=== PATIENT | female | born 1935 | race Caucasian/White ===

== ENCOUNTER 2021-09-08 18:30 | Emergency (ER) | payer MEDICARE ==
[2021-09-08 18:38] VITALS: BP 179/100; PULSE 91
--- NOTE | 2021-09-08 19:17 | CR ---
PROCEDURE INFORMATION: Exam: XR Left Femur Exam date and time: 09/08/2021 6:47 PM Age: 85 years old Clinical indication: Other: Fall/knee pain; Additional info: Left femur pain due to fall TECHNIQUE: Imaging protocol: XR Left femur. Views: 2 views. COMPARISON: No relevant prior studies available. FINDINGS: Bones/joints: Right proximal femoral hardware noted. There is a severely comminuted and impacted distal left femoral fracture. It is likely intra-articular. There is impaction by at least 6 cm. Moderate degenerative changes in the left knee. Soft tissues: Soft tissue trauma seen in the left thigh and knee. IMPRESSION: Severely comminuted distal left femoral fracture
[2021-09-08] MEDS ORDERED: HYDROmorphone 0.5 MG/0.5 ML Syringe IVPUSH ONE ×2 (19:21→20:49)
--- NOTE | 2021-09-08 19:39 | EDM.PDOC ---
ED HPI GENERAL MEDICAL PROBLEM - General Chief Complaint: Lower Extremity Injury/Pain Stated Complaint: AMBULANCE Time Seen by Provider: 09/08/21 19:00 Source of Information: Reports: Patient History Limitations: Reports: No Limitations - History of Present Illness INITIAL COMMENTS - FREE TEXT/NARRATIVE: 85 y/o F c/o L knee pain after falling over her great gand son while he was playing on the floor. Pt tripped fell forward and landed on her L knee and catching herself with her hands. Pt then turned over and sat on her buttocks. No loc. Hx of afib, is on Coumadin. Pain is /10 just above the knee, sharp in nature, constant, worse with movement. Denies other injury, NVD, pelvic pain, back pain, ctls pain, cp, db, joy, vision prob. - Related Data Allergies Allergy/AdvReac Type Severity Reaction Status Date / Time Penicillins Allergy Rash Verified 09/08/21 18:30 [id number] Reductase Allergy Muscle Verified 09/08/21 18:30 Inhibitor Aches [Cpypsnd-Zxa-Vsi Reductase Inhibitor] Home Meds: Home Meds Aspirin [Adult Low Dose Aspirin EC] 81 mg PO DAILY 03/01/15 [History] Nitroglycerin [Nitrostat] 0.4 mg SL ASDIRECTED 03/01/15 [History] Acetaminophen [Acetaminophen Extra Strength] 1,000 mg PO Q6H PRN 03/02/15 [History] diphenhydrAMINE [Benadryl] 50 mg PO BEDTIME PRN 03/02/15 [History] Ezetimibe [Zetia] 10 mg PO DAILY 02/27/16 [History] Sennosides/Docusate Sodium [Senokot-S Tablet] 2 tab PO BID 10/03/16 [History] Ubidecarenone [Coq10] 50 mg PO DAILY 10/03/16 [History] carvediloL [Coreg] 25 mg PO BID 10/03/16 [History] Acetaminophen/HYDROcodone [Aylett 325-5 MG] 1 tab PO Q8H PRN #30 tablet 10/23/16 [Rx] Lisinopril [Prinivil] 5 mg PO DAILY #30 tablet 10/23/16 [Rx] Warfarin Sodium [Coumadin] 3 mg PO DAILY #8 tablet 10/23/16 [Rx] Warfarin Sodium [Coumadin] 4 mg PO DAILY #6 tablet 10/23/16 [Rx] Past Medical History HEENT History: Reports: Impaired Vision Other HEENT History: wears glasses Cardiovascular History: Reports: Afib, High Cholesterol, Hypertension, Stents Other Cardiovascular History: 2012 stents and two balloons Respiratory History: Reports: None Gastrointestinal History: Reports: None Genitourinary History: Reports: None [employer]ICER History: Reports: None, Musculoskeletal History: Reports: Arthritis Neurological History: Reports: None Psychiatric History: Reports: None Endocrine/Metabolic History: Reports: None Hematologic History: Reports: Blood Transfusion(s) Immunologic History: Reports: None Oncologic (Cancer) History: Reports: None Dermatologic History: Reports: None - Infectious Disease History Infectious Disease History: Reports: None - Past Surgical History Head Surgeries/Procedures: Reports: None Cardiovascular Surgical History: Reports: Coronary Artery Stent GI Surgical History: Reports: None Musculoskeletal Surgical History: Reports: Other (See Below) Other Musculoskeletal Surgeries/Procedures:: R gamma nail Social & Family History - Tobacco Use Tobacco Use Status *Q: Never Tobacco User - Caffeine Use Caffeine Use: Reports: Coffee - Recreational Drug Use Recreational Drug Use: No Review of Systems - Review of Systems Review Of Systems: Comprehensive ROS is negative, except as noted in HPI. ED EXAM, GENERAL - Physical Exam Exam: See Below Exam Limited By: No Limitations General Appearance: Alert, Mild Distress Eye Exam: Bilateral Eye: PERRL Throat/Mouth: Normal Inspection, Normal Lips, Normal Teeth, Normal Gums, Normal Oropharynx, Normal Voice, No Airway Compromise Head: Atraumatic, Normocephalic Neck: Normal Inspection, Supple, Non-Tender, Full Range of Motion Respiratory/Chest: No Respiratory Distress, Lungs Clear, Normal Breath Sounds, No Accessory Muscle Use, Chest Non-Tender Cardiovascular: Irregularly Irregular GI/Abdominal: Soft, Non-Tender (Female) Exam: Deferred Rectal (Female) Exam: Deferred Back Exam: Normal Inspection, Full Range of Motion #1 Interpretation EKG Date: 09/08/21 Time: 20:11 Rhythm: A-Fib [place]: Normal P-Wave: Absent QRS: Normal ST-T: Normal QT: Normal Course - Vital Signs Last Recorded V/S: Last Vital Signs Temp 98.7 F 09/08/21 18:30 Pulse 91 09/08/21 18:30 Resp 14 09/08/21 18:30 BP 179/100 H 09/08/21 18:30 Pulse Ox 96 09/08/21 18:30 - Orders/Labs/Meds Orders: Active Orders 24 hr Category Date Time Status Durable Medical Equipment for Discharge [DME for Oth 09/08/21 20:01 Ordered Discharge] [COMM] Stat Labs: Laboratory Tests 09/08/21 09/08/21 09/08/21 Range/Units 19:45 19:45 19:45 WBC 10.5 H (5.0-10.0) 10^3/uL RBC 4.67 (4.2-5.4) 10^6/uL Hgb 14.2 D (12.0-16.0) g/dL Hct 44.0 (37.0-47.0) % MCV 94.2 D (80-100) fL MCH 30.4 (27.0-34.0) pg MCHC 32.3 L (33.0-35.0) g/dL Plt Count 180 D (150-450) 10^3/uL Neut % (Auto) 81.4 H (42.2-75.2) % Lymph % (Auto) 9.0 L (20.5-50.1) % [facility] % (Auto) 7.0 (2-8) % Eos % (Auto) 2.2 (1.0-3.0) % Baso % (Auto) 0.4 (0.0-1.0) % PT 26.0 H (9.0-12.0) SEC INR 2.6 H (0.9-1.2) Sodium 141 (136-145) mmol/L Potassium 4.5 (3.5-5.1) mmol/L Chloride 105 (98-107) mmol/L Carbon Dioxide 27 (21-32) mmol/L Anion Gap 13.5 H (7-13) mEq/L BUN 17 (7-18) mg/dL Creatinine 1.06 H (0.55-1.02) mg/dL Est Cr Clr Drug Dosing TNP Estimated GFR (MDRD) 49 BUN/Creatinine Ratio 16.0 (No establ ref range) Glucose 127 H (70-99) mg/dL Calcium 8.5 (8.5-10.1) mg/dL Total Bilirubin 0.6 (0.2-1.0) mg/dL AST 26 (15-37) U/L ALT 20 (14-59) U/L Alkaline Phosphatase 69 (46-116) U/L B-Natriuretic Peptide (0-100) pg/ml Total Protein 6.8 (6.4-8.2) g/dL Albumin 3.1 L (3.4-5.0) g/dL Globulin 3.7 Albumin/Globulin Ratio 0.84 SARS-CoV-2 RNA ([facility]) (NEGATIVE) 09/08/21 09/08/21 Range/Units 20:01 20:09 WBC (5.0-10.0) 10^3/uL RBC (4.2-5.4) 10^6/uL Hgb (12.0-16.0) g/dL Hct (37.0-47.0) % MCV (80-100) fL MCH (27.0-34.0) pg MCHC (33.0-35.0) g/dL Plt Count (150-450) 10^3/uL Neut % (Auto) (42.2-75.2) % Lymph % (Auto) (20.5-50.1) % [facility] % (Auto) (2-8) % Eos % (Auto) (1.0-3.0) % Baso % (Auto) (0.0-1.0) % PT (9.0-12.0) SEC INR (0.9-1.2) Sodium (136-145) mmol/L Potassium (3.5-5.1) mmol/L Chloride (98-107) mmol/L Carbon Dioxide (21-32) mmol/L Anion Gap (7-13) mEq/L BUN (7-18) mg/dL Creatinine (0.55-1.02) mg/dL Est Cr Clr Drug Dosing Estimated GFR (MDRD) BUN/Creatinine Ratio (No establ ref range) Glucose (70-99) mg/dL Calcium (8.5-10.1) mg/dL Total Bilirubin (0.2-1.0) mg/dL AST (15-37) U/L ALT (14-59) U/L Alkaline Phosphatase (46-116) U/L B-Natriuretic Peptide 131 H (0-100) pg/ml Total Protein (6.4-8.2) g/dL Albumin (3.4-5.0) g/dL Globulin Albumin/Globulin Ratio SARS-CoV-2 RNA ([facility]) Negative (NEGATIVE) Meds: Medications Discontinued Medications Generic Name Dose Route Start Last Admin Trade Name Maria Ines PRN Reason Stop Dose Admin Acetaminophen Confirm 09/08/21 21:20 09/08/21 21:22 Acetaminophen 500 Mg Tab Administered 09/08/21 21:21 Not Given Dose 1,000 mg .ROUTE .STK-MED ONE Acetaminophen 1,000 mg 09/08/21 21:20 09/08/21 21:37 Acetaminophen 500 Mg Tab PO 09/08/21 21:21 1,000 mg ONETIME ONE Administration Hydromorphone HCl 0.5 mg 09/08/21 19:21 09/08/21 19:39 Hydromorphone 0.5 Mg/0.5 Ml Syringe IVPUSH 09/08/21 19:22 0.5 mg ONETIME ONE Administration Hydromorphone HCl 0.5 mg 09/08/21 20:49 09/08/21 21:19 Hydromorphone 0.5 Mg/0.5 Ml Syringe IVPUSH 09/08/21 20:50 0.5 mg ONETIME ONE Administration - Re-Assessments/Exams Free Text/Narrative Re-Assessment/Exam: 09/08/21 20:28 I discussed the pt with at [facility] orthopedics who accepted the pt for transfer. requested that we complete an EKG and CXR for pre op which he said will allow the pt to be directly admitted to the hospital and avoid a constly second ER visit. He asked that the pt be put into a knee immobilizer for splinting. 09/08/21 20:31 The pts pain is well managed at this time and she is resting comfortably in a knee immobilizer. Departure - Departure Time of Disposition: 20:31 Disposition: DC/Tfer to Acute Hospital 02 Condition: Serious Clinical Impression: Femur fracture, left Qualifiers: Encounter type: initial encounter Femur location: distal, unspecified portion Fracture type: closed Fracture morphology: unspecified fracture morphology Qualified Code(s): S72.402A - Unspecified fracture of lower end of left femur, initial encounter for closed fracture - Discharge Information *PRESCRIPTION DRUG MONITORING PROGRAM REVIEWED*: Not Applicable *COPY OF PRESCRIPTION DRUG MONITORING REPORT IN PATIENT NEY: Not Applicable Referrals: PCP,None [Primary Care Provider] - Forms: ED Department Discharge, Interfacility Transfer [facility] Sepsis Event Note (ED) - Evaluation Sepsis Screening Result: No Definite Risk - Focused Exam Vital Signs: Vital Signs Temp Pulse Resp BP Pulse Ox 09/08/21 18:30 98.7 F 91 14 179/100 H 96 - My Orders Last 24 Hours: My Active Orders 09/08/21 20:01 Durable Medical Equipment for Discharge [DME for Discharge] [COMM] Stat - Assessment/Plan Last 24 Hours: My Active Orders 09/08/21 20:01 Durable Medical Equipment for Discharge [DME for Discharge] [COMM] Stat
--- NOTE | 2021-09-08 20:28 | CR ---
PROCEDURE INFORMATION: Exam: XR Chest Exam date and time: 09/08/2021 8:07 PM Age: 85 years old Clinical indication: Other: Pre op TECHNIQUE: Imaging protocol: XR of the chest. Views: 1 view. COMPARISON: No relevant prior studies available. FINDINGS: Lungs: Unremarkable. No consolidation. Pleural spaces: Unremarkable. No pleural effusion. No pneumothorax. Heart/Mediastinum: Unremarkable. No cardiomegaly. Bones/joints: Unremarkable. IMPRESSION: No acute findings.
[2021-09-08 20:55] LABS: ANION GAP 13.5 mEq/L (7-13); CHLORIDE,CL 105 mmol/L (98-107); SODIUM,NA 141 mmol/L (136-145)
[2021-09-08] MEDS ORDERED: Acetaminophen 500 MG Tab PO ONE (21:20)
[2021-09-08] MEDS ORDERED: Acetaminophen 500 MG Tab ONE (21:20)
== END 2021-09-08 21:34 ==
LOC: DL.ED 18:30
DX: S72.402A Unspecified fracture of lower end of left femur, initial encounter for closed fracture (principal); I48.91 Unspecified atrial fibrillation; E78.00 Pure hypercholesterolemia, unspecified; I10 Essential (primary) hypertension; Z20.822 Contact with and (suspected) exposure to COVID-19; Z88.0 Allergy status to penicillin; Z88.8 Allergy status to other drugs, medicaments and biological substances; Z79.82 Long term (current) use of aspirin; Z79.899 Other long term (current) drug therapy; Z79.01 Long term (current) use of anticoagulants; Z95.5 Presence of coronary angioplasty implant and graft; W01.0XXA Fall on same level from slipping, tripping and stumbling without subsequent striking against object, initial encounter
CPT/HCPCS: 36415; 71045; 73552; 80053; 83880; 85025; 85610; 93005; 96374; 96376; 99285; A9270; J1170; U0002